=== PATIENT | male | born 1945 | race Two or more races ===

== ENCOUNTER → 2017-05-10 | Outpatient (CLI) | payer MEDICARE, MEDICAID | END | disposition home health service (06) | LOC: WOU 09:50 | PROVIDERS: ATTEND Podiatrist Foot & Ankle Surgery | DX: T87.81 Dehiscence of amputation stump (principal); E11.51 Type 2 diabetes mellitus with diabetic peripheral angiopathy without gangrene; L97.515 Non-pressure chronic ulcer of other part of right foot with muscle involvement without evidence of necrosis; T86.821 Skin graft (allograft) (autograft) failure; E11.42 Type 2 diabetes mellitus with diabetic polyneuropathy; Z87.891 Personal history of nicotine dependence; Z90.5 Acquired absence of kidney; Z79.4 Long term (current) use of insulin; Z79.899 Other long term (current) drug therapy; Z86.73 Personal history of transient ischemic attack (TIA), and cerebral infarction without residual deficits; Z85.51 Personal history of malignant neoplasm of bladder | CPT/HCPCS: 11043; 87070-TC; A4606; A6402; A6407 ==

== ENCOUNTER 2017-05-17 09:49 | Outpatient (CLI) | payer MEDICARE, MEDICAID | END 2017-05-17 23:59 | disposition home or self-care (01) | LOC: WOU 09:49 | PROVIDERS: ATTEND Specialist | DX: Z01.818 Encounter for other preprocedural examination (principal); T87.89 Other complications of amputation stump; T86.821 Skin graft (allograft) (autograft) failure; E11.52 Type 2 diabetes mellitus with diabetic peripheral angiopathy with gangrene; E11.42 Type 2 diabetes mellitus with diabetic polyneuropathy; Z85.528 Personal history of other malignant neoplasm of kidney; Z90.5 Acquired absence of kidney; Z89.421 Acquired absence of other right toe(s); Z90.79 Acquired absence of other genital organ(s); Z86.73 Personal history of transient ischemic attack (TIA), and cerebral infarction without residual deficits; Z85.46 Personal history of malignant neoplasm of prostate; Z85.51 Personal history of malignant neoplasm of bladder; Z87.891 Personal history of nicotine dependence; I10 Essential (primary) hypertension; Z79.4 Long term (current) use of insulin; Z79.899 Other long term (current) drug therapy; I74.3 Embolism and thrombosis of arteries of the lower extremities | CPT/HCPCS: A6402; G0463 ==

== ENCOUNTER → 2017-05-19 | Outpatient (CLI) | payer MEDICARE, MEDICAID | END | disposition home health service (06) | LOC: WOU 09:45 | PROVIDERS: ATTEND Podiatrist Foot & Ankle Surgery | DX: T87.89 Other complications of amputation stump (principal); E11.51 Type 2 diabetes mellitus with diabetic peripheral angiopathy without gangrene; Z90.5 Acquired absence of kidney; Z99.2 Dependence on renal dialysis; Z90.79 Acquired absence of other genital organ(s); Z85.46 Personal history of malignant neoplasm of prostate; Z85.528 Personal history of other malignant neoplasm of kidney; L97.515 Non-pressure chronic ulcer of other part of right foot with muscle involvement without evidence of necrosis; R05 Cough | CPT/HCPCS: 11043; 71046; A6402 ==

== ENCOUNTER 2017-05-26 11:00 | Outpatient (CLI) | payer MEDICARE, MEDICAID | END 2017-05-29 23:59 | disposition home health service (06) | LOC: WOU 11:00 | PROVIDERS: ATTEND Podiatrist Foot & Ankle Surgery | DX: E11.621 Type 2 diabetes mellitus with foot ulcer (principal); L97.515 Non-pressure chronic ulcer of other part of right foot with muscle involvement without evidence of necrosis; T86.821 Skin graft (allograft) (autograft) failure; E11.51 Type 2 diabetes mellitus with diabetic peripheral angiopathy without gangrene; Z89.421 Acquired absence of other right toe(s); Z79.4 Long term (current) use of insulin | CPT/HCPCS: 11043; A6402 ==

== ENCOUNTER 2017-06-02 11:47 | Outpatient (CLI) | payer MEDICARE, MEDICAID | END 2017-06-02 23:59 | disposition home health service (06) | LOC: WOU 11:47 | PROVIDERS: ATTEND Podiatrist Foot & Ankle Surgery | DX: T87.53 Necrosis of amputation stump, right lower extremity (principal); E11.42 Type 2 diabetes mellitus with diabetic polyneuropathy; Z89.431 Acquired absence of right foot; Z85.46 Personal history of malignant neoplasm of prostate; Z85.528 Personal history of other malignant neoplasm of kidney; Z90.5 Acquired absence of kidney; Z99.2 Dependence on renal dialysis; E11.51 Type 2 diabetes mellitus with diabetic peripheral angiopathy without gangrene; Z79.4 Long term (current) use of insulin; Z79.899 Other long term (current) drug therapy | CPT/HCPCS: 11043; A6402 ==

== ENCOUNTER 2017-06-09 11:30 | Outpatient (CLI) | payer MEDICARE, MEDICAID | END 2017-06-09 23:59 | disposition home health service (06) | LOC: WOU 11:30 | PROVIDERS: ATTEND Podiatrist Foot & Ankle Surgery | DX: T86.821 Skin graft (allograft) (autograft) failure (principal); Z90.5 Acquired absence of kidney; Z85.46 Personal history of malignant neoplasm of prostate; Z85.528 Personal history of other malignant neoplasm of kidney; Z99.2 Dependence on renal dialysis; T87.53 Necrosis of amputation stump, right lower extremity; R60.0 Localized edema; E11.621 Type 2 diabetes mellitus with foot ulcer; Z79.4 Long term (current) use of insulin; L97.513 Non-pressure chronic ulcer of other part of right foot with necrosis of muscle | CPT/HCPCS: 11043; A6402 ==

== ENCOUNTER 2017-07-14 11:00 | Outpatient (CLI) | payer MEDICARE, MEDICAID | END 2017-07-14 23:59 | disposition home health service (06) | LOC: WOU 11:00 | PROVIDERS: ATTEND Podiatrist Foot & Ankle Surgery | DX: T87.89 Other complications of amputation stump (principal); E11.621 Type 2 diabetes mellitus with foot ulcer; L97.412 Non-pressure chronic ulcer of right heel and midfoot with fat layer exposed; R23.4 Changes in skin texture; T81.89XA Other complications of procedures, not elsewhere classified, initial encounter; Z99.2 Dependence on renal dialysis; Z90.5 Acquired absence of kidney; Z85.46 Personal history of malignant neoplasm of prostate; Z79.4 Long term (current) use of insulin; Z79.899 Other long term (current) drug therapy; E11.52 Type 2 diabetes mellitus with diabetic peripheral angiopathy with gangrene; E11.69 Type 2 diabetes mellitus with other specified complication; M86.8X7 Other osteomyelitis, ankle and foot; L03.115 Cellulitis of right lower limb; Z89.421 Acquired absence of other right toe(s) | CPT/HCPCS: 11042; 87070-TC; 87075-TC; 87186-TC; A6402 ==

== ENCOUNTER 2017-08-04 10:10 | Outpatient (CLI) | payer MEDICARE, MEDICAID, BC ==
[2017-10-31] MEDS ORDERED: CLON1TAB5 PO (17:27)
== END 2017-08-04 23:59 | disposition home health service (06) ==
LOC: WOU 10:10
PROVIDERS: ATTEND Podiatrist Foot & Ankle Surgery
DX: T87.89 Other complications of amputation stump (principal); L97.512 Non-pressure chronic ulcer of other part of right foot with fat layer exposed; I73.9 Peripheral vascular disease, unspecified; E11.621 Type 2 diabetes mellitus with foot ulcer; T81.89XD Other complications of procedures, not elsewhere classified, subsequent encounter; L97.412 Non-pressure chronic ulcer of right heel and midfoot with fat layer exposed; L03.115 Cellulitis of right lower limb; Z99.2 Dependence on renal dialysis; Z85.46 Personal history of malignant neoplasm of prostate; Z79.4 Long term (current) use of insulin; Z90.5 Acquired absence of kidney; Z89.421 Acquired absence of other right toe(s); Z79.899 Other long term (current) drug therapy
CPT/HCPCS: 11042; 87070-TC; 87186-TC; A6402

== ENCOUNTER 2017-09-13 10:34 | Outpatient (CLI) | payer MEDICARE, BC, MEDICAID ==
[2017-10-31] MEDS ORDERED: CLON1TAB5 PO (17:27)
== END 2017-09-13 23:59 | disposition home health service (06) ==
LOC: WOU 10:34
PROVIDERS: ATTEND Podiatrist Foot & Ankle Surgery
DX: E11.52 Type 2 diabetes mellitus with diabetic peripheral angiopathy with gangrene (principal); I96 Gangrene, not elsewhere classified; T87.9 Unspecified complications of amputation stump; Z85.46 Personal history of malignant neoplasm of prostate; Z85.528 Personal history of other malignant neoplasm of kidney; Z99.2 Dependence on renal dialysis; Z89.431 Acquired absence of right foot; R23.4 Changes in skin texture; Z79.4 Long term (current) use of insulin
CPT/HCPCS: 11042; 11044; A6402

== ENCOUNTER 2017-10-31 15:24 | Inpatient (IN) | payer MEDICARE, MEDICAID ==
[~2017-10-31] VITALS: Ht 175.3 cm; Wt 95.3 kg
[2017-10-31] MEDS ORDERED: PIPERACILLIN /TAZOBACTAM 3.375 G in IV D5W 50 ML IV ONE (16:00)
[2017-10-31 16:02] LABS: BASOPHILS % (AUTO) 0.4 % (0.0-2.0); EOSINOPHILS % (AUTO) 0.3 % (0.0-6.0); HEMATOCRIT 36 % (39-51); HEMOGLOBIN 12.2 g/dL (13.5-17.5); LYMPHOCYTES # (AUTO) 0.9 /CMM (0.8-4.8); LYMPHOCYTES % (AUTO) 11.5 % (20.0-44.0); MEAN CORPUSCULAR HEMOGLOBIN 31 PG (26.0-33.0); MEAN CORPUSCULAR HGB CONC 34 g/dl (31.0-36.0); MEAN CORPUSCULAR VOLUME 93 fL (80-96); MONOCYTES # (AUTO) 0.8 /CMM (0.1-1.30); MONOCYTES % (AUTO) 9.7 % (2.0-12.0); NEUTROPHILS # (AUTO) 6.2 /CMM (1.8-8.9); NEUTROPHILS % (AUTO) 78.1 % (43.0-81.0); PLATELET COUNT (AUTO) 122 /CMM (150-450); RDW COEFFICIENT OF VARIATION 15.8 (11.5-15.0); RED BLOOD CELL COUNT(AUTO) 3.92 MIL/uL (4.5-6.0); WHITE BLOOD COUNT (AUTO) 7.9 K/uL (4.3-11.0)
[2017-10-31 16:09] LABS: CALCIUM, SERUM 8.5 mg/dL (8.5-10.1); CARBON DIOXIDE 32 mmol/L (21-32); CHLORIDE 94 mmol/L (98-107); CREATININE 5.5 mg/dL (0.6-1.3); GLUCOSE 173 mg/dL (74-106); POTASSIUM 3.8 mmol/L (3.5-5.1); SODIUM SERUM 134 mmol/L (136-145); UREA NITROGEN, BLOOD 24 mg/dL (7-18)
[2017-10-31 16:16] LABS: ALANINE AMINOTRANSFERASE 18 U/L (12-78); ALBUMIN 2.9 g/dL (3.4-5.0); ALKALINE PHOSPHATASE 93 U/L (46-116); ASPARTATE AMINOTRANSFERASE 23 U/L (15-37); BILIRUBIN,DIRECT 0.1 mg/dL (0.0-0.2); BILIRUBIN,TOTAL 0.4 mg/dL (0.2-1.0); TOTAL PROTEIN, SERUM 7.6 g/dL (6.4-8.2)
[2017-10-31 16:54] LABS: BAND % (MANUAL) 1 % (0.0-5.0); LYMPHOCYTES % (MANUAL) 17 % (16-48); MONOCYTES % (MANUAL) 5 % (0-11.0); NEUTROPHILS % (MANUAL) 77 (42-76)
[2017-10-31] MEDS ORDERED: CLOP75TA15 PO (17:27)
[2017-10-31] MEDS ORDERED: INSU100I14 SQ (17:27)
[2017-10-31] MEDS ORDERED: CALC667T2 PO (17:27)
[2017-10-31] MEDS ORDERED: CLON1TAB4 PO (17:27)
[2017-10-31] MEDS ORDERED: CARV25TA2 PO (17:27)
[2017-10-31] MEDS ORDERED: PREG150C PO (17:27)
[2017-10-31] MEDS ORDERED: HYDR-552 PO (17:27)
[2017-10-31] MEDS ORDERED: SEVE800T8 PO (17:27)
[2017-10-31] MEDS ORDERED: CLON0.1T PO (17:27)
[2017-10-31] MEDS ORDERED: HYDR-4076 PO (17:27)
[2017-10-31] MEDS ORDERED: INSU100V7 SQ (17:27)
[2017-10-31] MEDS ORDERED: ACETAMINOPHEN 325 MG TABLET PO PRN (18:00)
[2017-10-31] MEDS ORDERED: TEMAZEPAM 15 MG CAPSULE PO PRN (18:00)
[2017-10-31] MEDS ORDERED: MAGNESIUM HYDROXIDE 30 ML UDC PO PRN (18:00)
[2017-10-31] MEDS ORDERED: MORPHINE SULFATE INJ 4 MG/ML DISP.SYRIN IV PRN (18:00)
[2017-10-31] MEDS ORDERED: ONDANSETRON HCL/PF 4 MG/2 ML VIAL IVP PRN (18:00)
[2017-10-31] MEDS ORDERED: MAG HYDROX/AL HYDROX/SIMETH 30 ML UDC PO PRN (18:00)
[2017-10-31 19:00] VITALS: BP 119/48
[2017-10-31] MEDS ORDERED: FEE PK DOSING 1 MIN EA MC ONE (19:28)
[2017-10-31 20:00] VITALS: BP 101/52
[2017-10-31] MEDS ORDERED: VANCOMYCIN 1 GM in IV D5W 250 ML IV ONE (20:00)
[2017-10-31] MEDS ORDERED: clonazePAM 1 MG TABLET PO PRN (20:00)
[2017-10-31] MEDS ORDERED: CLONIDINE HCL 0.1 MG TABLET PO PRN (20:00)
[2017-10-31] MEDS ORDERED: DEXTROSE 50%-WATER 50 ML DISP.SYRIN IV PRN (20:30)
[2017-10-31] MEDS: CARVEDILOL 12.5 MG TABLET PO SCH (21:05)
[2017-10-31] MEDS: BLOOD SUGAR DIAGNOSTIC 1 EACH STRIP IN SCH (21:25)
[2017-10-31] MEDS ORDERED: INSULIN GLARGINE, 100 UNIT/ML CARTRIDGE SQ SCH (22:00)
[2017-10-31] MEDS ORDERED: INSULIN GLARGINE, 100 UNIT/ML CARTRIDGE SQ ONE (22:15)
[2017-10-31] MEDS ORDERED: INSULIN REGULAR, HUMAN 100 UNIT/ML 3 ML VIAL ONE (22:15)
[2017-10-31] MEDS: INSULIN REGULAR, HUMAN 100 UNIT/ML 3 ML VIAL SQ PRN (22:40)
[2017-10-31] MEDS: PIPERACILLIN /TAZOBACTAM 2.25 G in IV D5W 50 ML IV SCH (23:07)
[2017-11-01] MEDS: PIPERACILLIN /TAZOBACTAM 2.25 G in IV D5W 50 ML IV SCH ×3 (04:58→21:12)
[2017-11-01] MEDS: BLOOD SUGAR DIAGNOSTIC 1 EACH STRIP IN SCH ×4 (06:19→21:13)
[2017-11-01] MEDS: INSULIN REGULAR, HUMAN 100 UNIT/ML 3 ML VIAL SQ PRN ×4 (06:22→21:24)
[2017-11-01 07:05] LABS: BASOPHILS % (AUTO) 0.1 % (0.0-2.0); EOSINOPHILS % (AUTO) 1.2 % (0.0-6.0); HEMATOCRIT 33 % (39-51); HEMOGLOBIN 11.4 g/dL (13.5-17.5); LYMPHOCYTES # (AUTO) 1.1 /CMM (0.8-4.8); LYMPHOCYTES % (AUTO) 17.2 % (20.0-44.0); MEAN CORPUSCULAR HEMOGLOBIN 32 PG (26.0-33.0); MEAN CORPUSCULAR HGB CONC 34 g/dl (31.0-36.0); MEAN CORPUSCULAR VOLUME 95 fL (80-96); MONOCYTES # (AUTO) 0.9 /CMM (0.1-1.30); MONOCYTES % (AUTO) 13.9 % (2.0-12.0); NEUTROPHILS # (AUTO) 4.4 /CMM (1.8-8.9); NEUTROPHILS % (AUTO) 67.6 % (43.0-81.0); PLATELET COUNT (AUTO) 121 /CMM (150-450); RDW COEFFICIENT OF VARIATION 16.8 (11.5-15.0); RED BLOOD CELL COUNT(AUTO) 3.51 MIL/uL (4.5-6.0); WHITE BLOOD COUNT (AUTO) 6.4 K/uL (4.3-11.0)
[2017-11-01 07:19] LABS: CHOLESTEROL 168 mg/dL (<200); HDL CHOLESTEROL 30 mg/dL (40-60); LDL 61 mg/dL (0-99); TRIGLYCERIDES 570 mg/dL (30-150)
[2017-11-01 07:25] LABS: CALCIUM, SERUM 8.1 mg/dL (8.5-10.1); CARBON DIOXIDE 32 mmol/L (21-32); CHLORIDE 96 mmol/L (98-107); CREATININE 7.4 mg/dL (0.6-1.3); GLUCOSE 276 mg/dL (74-106); MAGNESIUM 2.3 mg/dL (1.8-2.4); POTASSIUM 4.2 mmol/L (3.5-5.1); SODIUM SERUM 136 mmol/L (136-145); UREA NITROGEN, BLOOD 36 mg/dL (7-18); VANCOMYCIN,TROUGH 23 ug/ml (12-20)
[2017-11-01] MEDS: PREGABALIN 100 MG CAPSULE PO SCH ×3 (08:30→17:10)
[2017-11-01] MEDS: SEVELAMER CARBONATE 800 MG TABLET PO SCH ×3 (08:30→17:10)
[2017-11-01] MEDS: CLOPIDOGREL BISULFATE 75 MG TABLET PO SCH (08:30)
[2017-11-01] MEDS: CARVEDILOL 12.5 MG TABLET PO SCH ×2 (08:30→21:13)
[2017-11-01] MEDS: CALCIUM ACETATE 667 MG TABLET PO SCH ×3 (08:30→17:10)
[2017-11-01] MEDS: hydrALAZINE HCL 25 MG TABLET PO SCH ×3 (08:31→17:10)
[2017-11-01 08:32] VITALS: BP 138/60
[2017-11-01] MEDS: INSULIN GLARGINE, 100 UNIT/ML CARTRIDGE SQ SCH ×2 (11:43→21:26)
[2017-11-01] MEDS: CADEXOMER IODINE UD 5 GM TUBE TP SCH ×2 (11:46→17:11)
[2017-11-01] MEDS: DAKINS QUARTER STRENGTH (0.125%) 480 ML BOTTLE TOP SCH (11:47)
[2017-11-01 16:35] VITALS: BP 130/57
[2017-11-01] MEDS ORDERED: LORAZEPAM INJ 2 MG/ML VIAL IV PRN ×2 (17:00)
[2017-11-01] MEDS: LACTOBACILLUS RHAMNOSUS GG 1 EACH CAP.SPRINK PO SCH (17:10)
[2017-11-01 20:00] VITALS: BP_SYST 155; BP_SYST 158; BP_DIAS 66
[2017-11-01] MEDS ORDERED: ASPIRIN 81 MG TAB.CHEW PO ONE (22:30)
[2017-11-02] MEDS: PIPERACILLIN /TAZOBACTAM 2.25 G in IV D5W 50 ML IV SCH ×3 (05:43→21:07)
[2017-11-02 07:12] LABS: BASOPHILS % (AUTO) 0.1 % (0.0-2.0); HEMATOCRIT 34 % (39-51); HEMOGLOBIN 11.4 g/dL (13.5-17.5); LYMPHOCYTES # (AUTO) 1.5 /CMM (0.8-4.8); LYMPHOCYTES % (AUTO) 21.1 % (20.0-44.0); MEAN CORPUSCULAR HEMOGLOBIN 32 PG (26.0-33.0); MEAN CORPUSCULAR HGB CONC 34 g/dl (31.0-36.0); MEAN CORPUSCULAR VOLUME 96 fL (80-96); MONOCYTES # (AUTO) 0.9 /CMM (0.1-1.30); MONOCYTES % (AUTO) 11.9 % (2.0-12.0); NEUTROPHILS # (AUTO) 4.6 /CMM (1.8-8.9); NEUTROPHILS % (AUTO) 64.9 % (43.0-81.0); PLATELET COUNT (AUTO) 125 /CMM (150-450); RDW COEFFICIENT OF VARIATION 16.4 (11.5-15.0); RED BLOOD CELL COUNT(AUTO) 3.56 MIL/uL (4.5-6.0); WHITE BLOOD COUNT (AUTO) 7.1 K/uL (4.3-11.0)
[2017-11-02 07:33] LABS: CALCIUM, SERUM 8.5 mg/dL (8.5-10.1); CARBON DIOXIDE 31 mmol/L (21-32); CHLORIDE 96 mmol/L (98-107); GLUCOSE 115 mg/dL (74-106); MAGNESIUM 2.6 mg/dL (1.8-2.4); PHOSPHORUS 6.1 mg/dL (2.5-4.9); POTASSIUM 4.5 mmol/L (3.5-5.1); SODIUM SERUM 137 mmol/L (136-145); UREA NITROGEN, BLOOD 50 mg/dL (7-18)
[2017-11-02 07:39] LABS: CREATININE 9.8 mg/dL (0.6-1.3)
[2017-11-02 08:00] VITALS: BP 136/55
[2017-11-02] MEDS: CARVEDILOL 12.5 MG TABLET PO SCH ×2 (08:24→20:38)
[2017-11-02] MEDS: ASPIRIN 81 MG TAB.CHEW PO SCH (08:24)
[2017-11-02] MEDS: LACTOBACILLUS RHAMNOSUS GG 1 EACH CAP.SPRINK PO SCH ×2 (08:24→17:51)
[2017-11-02] MEDS: SEVELAMER CARBONATE 800 MG TABLET PO SCH ×3 (08:24→17:51)
[2017-11-02] MEDS: CLOPIDOGREL BISULFATE 75 MG TABLET PO SCH (08:24)
[2017-11-02] MEDS: PREGABALIN 100 MG CAPSULE PO SCH ×4 (08:25→17:51)
[2017-11-02] MEDS: BLOOD SUGAR DIAGNOSTIC 1 EACH STRIP IN SCH ×4 (08:25→21:05)
[2017-11-02] MEDS: hydrALAZINE HCL 25 MG TABLET PO SCH ×3 (08:25→17:00)
[2017-11-02] MEDS: CALCIUM ACETATE 667 MG TABLET PO SCH ×3 (08:26→17:51)
[2017-11-02] MEDS: DAKINS QUARTER STRENGTH (0.125%) 480 ML BOTTLE TOP SCH (08:29)
[2017-11-02] MEDS: CADEXOMER IODINE UD 5 GM TUBE TP SCH ×2 (08:30→17:56)
[2017-11-02] MEDS: INSULIN GLARGINE, 100 UNIT/ML CARTRIDGE SQ SCH ×2 (08:32→21:05)
[2017-11-02] MEDS: INSULIN REGULAR, HUMAN 100 UNIT/ML 3 ML VIAL SQ PRN ×3 (12:20→21:06)
[2017-11-02 16:00] VITALS: BP 138/56
[2017-11-02] MEDS: VANCOMYCIN 500 MG in IV D5W 100 ML IV PRN (19:38)
[2017-11-02 20:00] VITALS: BP 162/68
[2017-11-03] MEDS: PIPERACILLIN /TAZOBACTAM 2.25 G in IV D5W 50 ML IV SCH ×3 (04:30→21:31)
[2017-11-03 06:31] LABS: BASOPHILS % (AUTO) 0.1 % (0.0-2.0); EOSINOPHILS % (AUTO) 1.9 % (0.0-6.0); HEMATOCRIT 32 % (39-51); HEMOGLOBIN 10.8 g/dL (13.5-17.5); LYMPHOCYTES # (AUTO) 1.6 /CMM (0.8-4.8); MEAN CORPUSCULAR HEMOGLOBIN 32 PG (26.0-33.0); MEAN CORPUSCULAR HGB CONC 33 g/dl (31.0-36.0); MEAN CORPUSCULAR VOLUME 95 fL (80-96); MONOCYTES # (AUTO) 0.9 /CMM (0.1-1.30); MONOCYTES % (AUTO) 11.2 % (2.0-12.0); NEUTROPHILS # (AUTO) 5.3 /CMM (1.8-8.9); NEUTROPHILS % (AUTO) 66.8 % (43.0-81.0); PLATELET COUNT (AUTO) 146 /CMM (150-450); RDW COEFFICIENT OF VARIATION 16.6 (11.5-15.0); RED BLOOD CELL COUNT(AUTO) 3.39 MIL/uL (4.5-6.0)
[2017-11-03] MEDS: BLOOD SUGAR DIAGNOSTIC 1 EACH STRIP IN SCH ×4 (06:48→21:44)
[2017-11-03 06:56] LABS: CALCIUM, SERUM 8.7 mg/dL (8.5-10.1); CARBON DIOXIDE 31 mmol/L (21-32); CHLORIDE 102 mmol/L (98-107); GLUCOSE 113 mg/dL (74-106); POTASSIUM 4.8 mmol/L (3.5-5.1); SODIUM SERUM 139 mmol/L (136-145); UREA NITROGEN, BLOOD 37 mg/dL (7-18)
[2017-11-03 06:59] LABS: CREATININE 7.8 mg/dL (0.6-1.3)
[2017-11-03 08:00] VITALS: BP 135/51
[2017-11-03] MEDS: LACTOBACILLUS RHAMNOSUS GG 1 EACH CAP.SPRINK PO SCH ×2 (08:32→18:10)
[2017-11-03] MEDS: hydrALAZINE HCL 25 MG TABLET PO SCH ×3 (08:33→18:10)
[2017-11-03] MEDS: PREGABALIN 100 MG CAPSULE PO SCH ×3 (08:33→18:10)
[2017-11-03] MEDS: CALCIUM ACETATE 667 MG TABLET PO SCH ×3 (08:33→18:10)
[2017-11-03] MEDS: SEVELAMER CARBONATE 800 MG TABLET PO SCH ×3 (08:34→18:10)
[2017-11-03] MEDS: ASPIRIN 81 MG TAB.CHEW PO SCH (08:34)
[2017-11-03] MEDS: CARVEDILOL 12.5 MG TABLET PO SCH ×2 (08:35→21:41)
[2017-11-03] MEDS: CLOPIDOGREL BISULFATE 75 MG TABLET PO SCH (08:35)
[2017-11-03] MEDS: DAKINS QUARTER STRENGTH (0.125%) 480 ML BOTTLE TOP SCH (08:43)
[2017-11-03] MEDS: CADEXOMER IODINE UD 5 GM TUBE TP SCH ×2 (08:43→18:18)
[2017-11-03] MEDS ORDERED: LIDOCAINE 1% INJ 50 ML MDV IJ ONE (09:00)
[2017-11-03] MEDS: INSULIN GLARGINE, 100 UNIT/ML CARTRIDGE SQ SCH ×2 (09:02→21:47)
[2017-11-03] MEDS: HYDROCODONE/APAP 10/325MG 1 EA TABLET PO PRN ×2 (12:28→18:20)
[2017-11-03] MEDS: INSULIN REGULAR, HUMAN 100 UNIT/ML 3 ML VIAL SQ PRN ×2 (13:41→18:17)
[2017-11-03 16:00] VITALS: BP 130/78
[2017-11-03 20:00] VITALS: BP 145/54
[2017-11-04] MEDS: HYDROCODONE/APAP 10/325MG 1 EA TABLET PO PRN ×3 (04:38→16:26)
[2017-11-04] MEDS: PIPERACILLIN /TAZOBACTAM 2.25 G in IV D5W 50 ML IV SCH ×3 (05:14→21:22)
[2017-11-04 07:03] LABS: BASOPHILS % (AUTO) 0.1 % (0.0-2.0); EOSINOPHILS % (AUTO) 2.8 % (0.0-6.0); HEMATOCRIT 31 % (39-51); HEMOGLOBIN 10.3 g/dL (13.5-17.5); LYMPHOCYTES # (AUTO) 1.6 /CMM (0.8-4.8); LYMPHOCYTES % (AUTO) 21.2 % (20.0-44.0); MEAN CORPUSCULAR HEMOGLOBIN 32 PG (26.0-33.0); MEAN CORPUSCULAR HGB CONC 33 g/dl (31.0-36.0); MEAN CORPUSCULAR VOLUME 96 fL (80-96); MONOCYTES # (AUTO) 0.6 /CMM (0.1-1.30); MONOCYTES % (AUTO) 8.5 % (2.0-12.0); NEUTROPHILS % (AUTO) 67.4 % (43.0-81.0); PLATELET COUNT (AUTO) 155 /CMM (150-450); RDW COEFFICIENT OF VARIATION 16.9 (11.5-15.0); RED BLOOD CELL COUNT(AUTO) 3.23 MIL/uL (4.5-6.0); WHITE BLOOD COUNT (AUTO) 7.4 K/uL (4.3-11.0)
[2017-11-04 07:20] LABS: CALCIUM, SERUM 8.4 mg/dL (8.5-10.1); CARBON DIOXIDE 27 mmol/L (21-32); CHLORIDE 100 mmol/L (98-107); GLUCOSE 163 mg/dL (74-106); POTASSIUM 5.5 mmol/L (3.5-5.1); SODIUM SERUM 137 mmol/L (136-145); UREA NITROGEN, BLOOD 44 mg/dL (7-18)
[2017-11-04 07:22] LABS: CREATININE 9.3 mg/dL (0.6-1.3)
[2017-11-04] MEDS: BLOOD SUGAR DIAGNOSTIC 1 EACH STRIP IN SCH ×4 (07:26→21:22)
[2017-11-04 08:00] VITALS: BP 135/55
[2017-11-04] MEDS: CALCIUM ACETATE 667 MG TABLET PO SCH ×3 (09:45→17:11)
[2017-11-04] MEDS: LACTOBACILLUS RHAMNOSUS GG 1 EACH CAP.SPRINK PO SCH ×2 (09:45→16:26)
[2017-11-04] MEDS: ASPIRIN 81 MG TAB.CHEW PO SCH (09:45)
[2017-11-04] MEDS: CARVEDILOL 12.5 MG TABLET PO SCH ×2 (09:45→21:25)
[2017-11-04] MEDS: SEVELAMER CARBONATE 800 MG TABLET PO SCH ×3 (09:45→17:11)
[2017-11-04] MEDS: CLOPIDOGREL BISULFATE 75 MG TABLET PO SCH (09:45)
[2017-11-04] MEDS: PREGABALIN 100 MG CAPSULE PO SCH ×3 (09:45→16:26)
[2017-11-04] MEDS: hydrALAZINE HCL 25 MG TABLET PO SCH ×3 (09:46→16:26)
[2017-11-04] MEDS: INSULIN GLARGINE, 100 UNIT/ML CARTRIDGE SQ SCH ×2 (09:47→21:24)
[2017-11-04] MEDS: DAKINS QUARTER STRENGTH (0.125%) 480 ML BOTTLE TOP SCH (09:49)
[2017-11-04] MEDS: CADEXOMER IODINE UD 5 GM TUBE TP SCH ×2 (09:50→16:27)
[2017-11-04] MEDS: INSULIN REGULAR, HUMAN 100 UNIT/ML 3 ML VIAL SQ PRN ×3 (12:43→21:25)
[2017-11-04 16:00] VITALS: BP 122/51
[2017-11-04 20:00] VITALS: BP 134/63
[2017-11-04] MEDS: VANCOMYCIN 500 MG in IV D5W 100 ML IV PRN (23:49)
[2017-11-05] MEDS: PIPERACILLIN /TAZOBACTAM 2.25 G in IV D5W 50 ML IV SCH ×2 (05:00→12:31)
[2017-11-05] MEDS: HYDROCODONE/APAP 10/325MG 1 EA TABLET PO PRN (06:29)
[2017-11-05] MEDS: BLOOD SUGAR DIAGNOSTIC 1 EACH STRIP IN SCH ×2 (06:31→11:56)
[2017-11-05 07:21] LABS: CALCIUM, SERUM 8.9 mg/dL (8.5-10.1); CARBON DIOXIDE 30 mmol/L (21-32); CHLORIDE 99 mmol/L (98-107); GLUCOSE 109 mg/dL (74-106); POTASSIUM 4.9 mmol/L (3.5-5.1); SODIUM SERUM 139 mmol/L (136-145); UREA NITROGEN, BLOOD 39 mg/dL (7-18)
[2017-11-05 07:35] LABS: CREATININE 8.3 mg/dL (0.6-1.3)
[2017-11-05 08:00] VITALS: BP 129/53
[2017-11-05] MEDS: CLOPIDOGREL BISULFATE 75 MG TABLET PO SCH (08:46)
[2017-11-05] MEDS: PREGABALIN 100 MG CAPSULE PO SCH (08:46)
[2017-11-05 08:47] VITALS: BP 129/53
[2017-11-05] MEDS: hydrALAZINE HCL 25 MG TABLET PO SCH (08:47)
[2017-11-05] MEDS: LACTOBACILLUS RHAMNOSUS GG 1 EACH CAP.SPRINK PO SCH (08:47)
[2017-11-05] MEDS: CARVEDILOL 12.5 MG TABLET PO SCH (08:47)
[2017-11-05] MEDS: CALCIUM ACETATE 667 MG TABLET PO SCH (08:47)
[2017-11-05] MEDS: SEVELAMER CARBONATE 800 MG TABLET PO SCH (08:48)
[2017-11-05] MEDS: ASPIRIN 81 MG TAB.CHEW PO SCH (08:48)
[2017-11-05] MEDS: INSULIN GLARGINE, 100 UNIT/ML CARTRIDGE SQ SCH (09:01)
[2017-11-05] MEDS ORDERED: LEVO500T75 PO (09:25)
[2017-11-05] MEDS ORDERED: AMOX-430 PO (09:25)
[2017-11-05] MEDS: CADEXOMER IODINE UD 5 GM TUBE TP SCH (11:56)
[2017-11-05] MEDS: DAKINS QUARTER STRENGTH (0.125%) 480 ML BOTTLE TOP SCH (11:56)
[2017-11-05] MEDS: INSULIN REGULAR, HUMAN 100 UNIT/ML 3 ML VIAL SQ PRN (12:02)
[2017-11-05] MEDS ORDERED: Hydrocodone/Apap 10/325MG PO (12:33)
== END 2017-11-05 13:00 | disposition home health service (06) | DRG 623 ==
LOC: ER 15:29 → MED 18:22
PROVIDERS: ADMIT Nurse Practitioner Acute Care; ATTEND Nurse Practitioner Acute Care
PROC: 5A1D70Z Performance of Urinary Filtration, Intermittent, Less than 6 Hours Per Day (ICD-10-PCS; 2017-11-02)
PROC: 0JBQ0ZZ Excision of Right Foot Subcutaneous Tissue and Fascia, Open Approach (ICD-10-PCS; principal; 2017-11-03)
PROC: 0J9Q0ZZ Drainage of Right Foot Subcutaneous Tissue and Fascia, Open Approach (ICD-10-PCS; 2017-11-03)
PROC: 5A1D70Z Performance of Urinary Filtration, Intermittent, Less than 6 Hours Per Day (ICD-10-PCS; 2017-11-04)
DX: E11.69 Type 2 diabetes mellitus with other specified complication (principal); L03.115 Cellulitis of right lower limb; M86.9 Osteomyelitis, unspecified; I12.0 Hypertensive chronic kidney disease with stage 5 chronic kidney disease or end stage renal disease; E11.52 Type 2 diabetes mellitus with diabetic peripheral angiopathy with gangrene; L97.419 Non-pressure chronic ulcer of right heel and midfoot with unspecified severity; E11.621 Type 2 diabetes mellitus with foot ulcer; N18.6 End stage renal disease; E11.22 Type 2 diabetes mellitus with diabetic chronic kidney disease; E11.42 Type 2 diabetes mellitus with diabetic polyneuropathy; Z99.2 Dependence on renal dialysis; Z90.5 Acquired absence of kidney; Z89.431 Acquired absence of right foot; Z87.891 Personal history of nicotine dependence; Z86.73 Personal history of transient ischemic attack (TIA), and cerebral infarction without residual deficits; Z98.890 Other specified postprocedural states; Z85.51 Personal history of malignant neoplasm of bladder; Z79.4 Long term (current) use of insulin; Z79.899 Other long term (current) drug therapy; F41.9 Anxiety disorder, unspecified; F32.9 Major depressive disorder, single episode, unspecified; E78.5 Hyperlipidemia, unspecified; D64.9 Anemia, unspecified; G89.29 Other chronic pain; I25.10 Atherosclerotic heart disease of native coronary artery without angina pectoris; L89.890 Pressure ulcer of other site, unstageable; E11.65 Type 2 diabetes mellitus with hyperglycemia; M85.861 Other specified disorders of bone density and structure, right lower leg
CPT/HCPCS: 36415; 73610-TC; 73630-TC; 73718-TC; 80048-TC; 80061-TC; 80076-TC; 80202-TC; 82962-TC; 83605-TC; 83735-TC; 84100-TC; 85025-TC; 85652-TC; 86850-TC; 87040-TC; 87070-TC; 87081-TC; 88305-TC; 88311-TC; 88312-TC; 90935-TC; A4606; A6402; J1815; J2543; J3370; J3490; J7040; J7060; Z7610

== ENCOUNTER 2017-12-06 11:00 | Outpatient (CLI) | payer MEDICARE, MEDICAID ==
[~2017-12-06 11:00] MED LIST: AMOX-430 PO; CALC667T2 PO; CARV25TA2 PO; CLON0.1T PO; CLON1TAB5 PO; CLOP75TA15 PO; HYDR-4076 PO; HYDR-552 PO; Hydrocodone/Apap 10/325MG PO; INSU100I14 SQ; INSU100V7 SQ; LEVO500T75 PO; PREG150C PO; SEVE800T8 PO
== END 2017-12-06 23:59 | disposition home health service (06) ==
LOC: WOU 11:00
PROVIDERS: ATTEND Specialist
DX: E11.621 Type 2 diabetes mellitus with foot ulcer (principal); L97.512 Non-pressure chronic ulcer of other part of right foot with fat layer exposed; L97.412 Non-pressure chronic ulcer of right heel and midfoot with fat layer exposed; E11.42 Type 2 diabetes mellitus with diabetic polyneuropathy; Z79.4 Long term (current) use of insulin; Z90.5 Acquired absence of kidney; Z85.528 Personal history of other malignant neoplasm of kidney; Z87.891 Personal history of nicotine dependence; Z99.2 Dependence on renal dialysis; E11.52 Type 2 diabetes mellitus with diabetic peripheral angiopathy with gangrene; E11.36 Type 2 diabetes mellitus with diabetic cataract; I10 Essential (primary) hypertension
CPT/HCPCS: A6402; G0463; Z7610

== ENCOUNTER 2021-11-16 01:03 | Inpatient (IN) | payer MEDICARE, OTHER ==
[~2021-11-16] VITALS: Ht 167.6 cm; Wt 80.3 kg
[~2021-11-16 01:03] MED LIST changes: +CLON1TAB12 PO; -CLON1TAB5 PO; +HYDR-4384 PO; -HYDR-552 PO; +LEVO500T23 PO; -LEVO500T75 PO
[2021-11-16] MEDS ORDERED: DEXTROSE 50%-WATER 50 ML DISP.SYRIN ONE (01:14)
--- NOTE | 2021-11-16 01:15 | NUR ---
PATIENT BIBA 79 FROM HOME FOR C/O ALTERED MENTAL STATUS. PATIENT ON LEVAQUIN FOR PNA.PATIENT TESTED + FOR COVID LAST WEEK. LAST HD: MONDAY. PATIENT TAKENTO ER BED 08. PATIENT PLACED ON CARDIAC AND POX MONITORS.
[2021-11-16] MEDS ORDERED: CHOL500062 PO ×2 (01:27→20:16)
[2021-11-16] MEDS ORDERED: ZINC50TA39 PO (01:27)
[2021-11-16] MEDS ORDERED: ASCO100058 PO (01:27)
[2021-11-16] MEDS ORDERED: VIT1TABL46 PO ×2 (01:27→20:16)
[2021-11-16] MEDS ORDERED: DEXTROSE 50%-WATER 50 ML DISP.SYRIN IVP ONE (01:30)
[2021-11-16 01:35] LABS: BASOPHILS % (AUTO) 0.4 % (0.0-2.0); EOSINOPHILS % (AUTO) 0.8 % (0.0-6.0); HEMATOCRIT 30 % (39-51); LYMPHOCYTES # (AUTO) 0.9 K/uL (0.8-4.8); LYMPHOCYTES % (AUTO) 22.1 % (20.0-44.0); MEAN CORPUSCULAR HGB CONC 34 g/dl (31.0-36.0); MEAN CORPUSCULAR VOLUME 95 fL (80-96); MONOCYTES # (AUTO) 0.3 K/uL (0.1-1.30); MONOCYTES % (AUTO) 6.4 % (2.0-12.0); NEUTROPHILS # (AUTO) 2.9 K/uL (1.8-8.9); NEUTROPHILS % (AUTO) 70.3 % (43.0-81.0); PLATELET COUNT (AUTO) 99 K/uL (150-450); RED BLOOD CELL COUNT(AUTO) 3.15 MIL/uL (4.5-6.0); WHITE BLOOD COUNT (AUTO) 4.1 K/uL (4.3-11.0)
--- NOTE | 2021-11-16 01:37 | NUR ---
BLOOD COLLECTED AND SENT TO LAB
--- NOTE | 2021-11-16 01:38 | NUR ---
XRAY AT BEDSIDE
--- NOTE | 2021-11-16 01:56 | NUR ---
COVID ANTIGEN SWAB COLLECTED AND SENT TO LAB
[2021-11-16 02:03] LABS: ALANINE AMINOTRANSFERASE 13 U/L (12-78); ALBUMIN 2.2 g/dL (3.4-5.0); ALKALINE PHOSPHATASE 45 U/L (46-116); ASPARTATE AMINOTRANSFERASE 25 U/L (15-37); BILIRUBIN,DIRECT 0.1 mg/dL (0.0-0.2); BILIRUBIN,TOTAL 0.4 mg/dL (0.2-1.0); CALCIUM, SERUM 8.1 mg/dL (8.5-10.1); CARBON DIOXIDE 28 mmol/L (21-32); CHLORIDE 94 mmol/L (98-107); GLUCOSE 51 mg/dL (74-106); POTASSIUM 3.8 mmol/L (3.5-5.1); SERUM AMMONIA < 10 umol/L (11-32); SODIUM SERUM 137 mmol/L (136-145); TOTAL PROTEIN, SERUM 7.5 g/dL (6.4-8.2); UREA NITROGEN, BLOOD 47 mg/dL (7-18)
[2021-11-16 02:04] LABS: CREATININE 9.7 mg/dL (0.6-1.3)
[2021-11-16 02:05] LABS: ALCOHOL, BLOOD < 3 mg/dL (0-0)
--- NOTE | 2021-11-16 02:08 | NUR ---
MRSA SWAB COLLECTED AND SENT TO LAB. PATIENT'S BELONGINGS LIST DONE.
[2021-11-16] MEDS ORDERED: ASPIRIN 325 MG TABLET ONE (02:26)
--- NOTE | 2021-11-16 02:32 | NUR ---
PT PASSED SWALLOW EVAL; ABLE TO SWALLOW WHOLE PILLS AND THIN LIQUIDS WITHOUT COUGHING OR CHOKING.
[2021-11-16 02:49] LABS: BASOPHILS % (MANUAL) 0 % (0.0-2.0); EOSINOPHILS % (MANUAL) 0 % (0-4); LYMPHOCYTES % (MANUAL) 20 % (16-48); MONOCYTES % (MANUAL) 11 % (0-11.0); NEUTROPHILS % (MANUAL) 69 (42-76)
[2021-11-16] MEDS ORDERED: ASPIRIN EC 325 MG TABLET.DR PO ONE (03:00)
[2021-11-16] MEDS ORDERED: CEFTRIAXONE 1 G in IV D5W 50 ML IV ONE (03:30)
[2021-11-16] MEDS ORDERED: AZITHROMYCIN 500 MG in IV D5W 250 ML IV ONE (03:30)
[2021-11-16] MEDS ORDERED: CEFTRIAXONE 1GM BAG (ER ONLY) 50 ML IV ONE (03:31)
[2021-11-16] MEDS ORDERED: AZITHROMYCIN 500 MG VIAL ONE (03:32)
[2021-11-16] MEDS ORDERED: ONDANSETRON HCL/PF 4 MG/2 ML VIAL IVP PRN (04:30)
[2021-11-16] MEDS ORDERED: ACETAMINOPHEN 325 MG TABLET PO PRN (04:30)
[2021-11-16] MEDS ORDERED: DEXTROSE 50%-WATER 50 ML DISP.SYRIN IV PRN (04:30)
[2021-11-16] MEDS ORDERED: INSULIN REGULAR, HUMAN 100 UNIT/ML 3 ML VIAL SQ PRN (04:30)
[2021-11-16] MEDS ORDERED: HEPARIN INFUSION/D5W 500 ML IV PRN (04:30)
[2021-11-16 05:56] LABS: C-REACTIVE PROTEIN 3.5 mg/dL (0.0-0.9)
--- NOTE | 2021-11-16 07:03 | NUR ---
PATIENTS WEIGHT 188LBS
--- NOTE | 2021-11-16 07:15 | NUR ---
RECEVED PT FROM PULE RN PT IN GERNY RESPIRATION SPONT AND EASY WATING FOR TELMETRY BED NO CHEST PAIN
--- NOTE | 2021-11-16 07:22 | NUR ---
REPORT GIVEN TO ALE GLORIA FOR RIAZ
--- NOTE | 2021-11-16 07:42 | NUR ---
ROOM [facility]
--- NOTE | 2021-11-16 07:47 | NUR ---
report given to Patrick AGUILERA for RIAZ
--- NOTE | 2021-11-16 08:05 | NUR ---
TO ROOM 102 MELI GALINDO VS
[2021-11-16] MEDS: BLOOD SUGAR DIAGNOSTIC 1 EACH STRIP IN SCH ×4 (08:15→22:55)
--- NOTE | 2021-11-16 08:45 | NUR ---
STARTED HEPARIN DRIP AT 1200 UNIT/ HR 2 RN WITNESS
[2021-11-16] MEDS ORDERED: CEFEPIME 1 GM VIAL IM SCH (10:00)
[2021-11-16] MEDS ORDERED: BIMA2.5D5 EACHEYE (10:03)
[2021-11-16] MEDS ORDERED: LEVO750T46 PO (10:03)
[2021-11-16] MEDS ORDERED: SEVE800T8 PO (10:03)
[2021-11-16] MEDS ORDERED: ROSU40TA23 PO (10:03)
[2021-11-16] MEDS ORDERED: METF-440 PO (10:03)
[2021-11-16] MEDS ORDERED: AMYL1CAP56 PO (10:03)
[2021-11-16] MEDS ORDERED: DEXL60CA3 PO (10:03)
[2021-11-16] MEDS ORDERED: LINA5TAB PO (10:03)
[2021-11-16] MEDS ORDERED: CALC667C6 PO (10:03)
[2021-11-16] MEDS ORDERED: REPA2TAB10 PO ×2 (10:03→20:16)
[2021-11-16] MEDS ORDERED: EMPA25TA PO (10:03)
[2021-11-16] MEDS ORDERED: LORA10TA7 PO (10:03)
[2021-11-16] MEDS ORDERED: METO-295 PO (10:03)
[2021-11-16] MEDS ORDERED: PROM118S5 PO (10:03)
[2021-11-16] MEDS: CEFEPIME 1 GM in IV D5W 50 ML IV SCH ×2 (10:35→21:41)
[2021-11-16] MEDS: DEXAMETHASONE SOD PHOSPHATE 10 MG/ML VIAL IV SCH (10:36)
--- NOTE | 2021-11-16 11:46 | NUR ---
RN NOTE PT RECEIVED FROM ER VIA JONATHAN, PT IN ROOM AIR. NOT IN RESPI DISTRESS. V/S STABLE. WITH IV ACCESS ON L WRIST G18. WITH HEPARIN DRIP RUNNING @ 1200U. NO SS OF BLEEDING NOTED. WILL CONTINUE TO MONITOR.
--- NOTE | 2021-11-16 11:48 | NUR ---
RN NOTE HD CONSENT FORM SIGNED BY PT, PT IS ALERT AND ORIENTED X 3.
[2021-11-16 16:00] VITALS: BP 141/54
--- NOTE | 2021-11-16 16:06 | NUR ---
RN NOTE PT 1500 APTT RESULTS 82.8. WILL HOLD HEPARIN DRIP FOR 30 MINS AND DECREASE RATE BY 150 U/HR PER PROTOCOL. PT NO SS OF BLEEDING NOTED. V/S STABLE.
--- NOTE | 2021-11-16 16:15 | NUR ---
RN NOTE PT APTT R/C 2100 11/16/21
--- NOTE | 2021-11-16 18:36 | NUR ---
RN NOTE 5160 BS - 315. PT REFUSED INSULIN COVERAGE. PT VERBALIZED HE STOPPED TAKING INSULIN B/C HE HAS ALLERGIC REACTIONS (ITCHING ALL OVER). PMD MADE AWARE. WITH TEL ORDER TO CONTINUE HOME MEDS. RECONCILED MEDS FAXED TO PHARMACY.
[2021-11-16 20:00] VITALS: BP 142/68
[2021-11-16] MEDS ORDERED: PREG150C PO (20:16)
[2021-11-16] MEDS ORDERED: CLON1TAB12 PO (20:16)
[2021-11-16] MEDS ORDERED: HYDR-4077 PO (20:16)
--- NOTE | 2021-11-16 20:30 | NUR ---
RN NOTES: NOTED PT WAS BLEEDING FROM AV SHUNT. APPLIED PRESSURE, BLEEDING STOPPED. APPLIED NEW DRESSING. NO BLEEDING NOTED. SIMRAN NARANJO NOTIFIED. AWARE.
--- NOTE | 2021-11-16 20:35 | NUR ---
RN NOTES: TURNED OFF HEPARIN PER DR. ROBERSON ORDER. WILL CONTINUE TO MONITOR
[2021-11-16] MEDS ORDERED: VANCOMYCIN 1 GM in IV D5W 250 ML IV ONE (21:00)
[2021-11-16] MEDS: CARVEDILOL 12.5 MG TABLET PO SCH (21:43)
[2021-11-16] MEDS: PREGABALIN 25 MG CAPSULE PO SCH (21:44)
--- NOTE | 2021-11-16 22:32 | NUR ---
RN NOTES: DR. ROBEROSN CAME TO VISIT THE PT. ORDER TO TURN ON THE HEPARIN AT 2245. WILL CONTINUE TO MONITOR
--- NOTE | 2021-11-16 22:56 | NUR ---
RN NOTES: HEPARIN DRIP STARTED PER DR. ORDER. PT'S BLOOD SUGAR 399. UNABLE TO GIVE INSULIN, PT STATED HE IS ALLERGIC TO INSULIN. WILL CONTINUE TO MONITOR
--- NOTE | 2021-11-16 23:00 | NUR ---
RN NOTES: NOTIFIED DR. DA KHALIL REGARDING PT'S BLOOD SUGAR 399. UNABLE TO TAKE INSULIN DUE TO ALLERGY. WILL CONTINUE TO MONITOR
--- NOTE | 2021-11-16 23:39 | NUR ---
RN NOTES: AT 2330, PTT LEVEL 44.6, INCREASE THE HEPARIN DRIP BY 150 UNITS/HR PER PROTOCOL. NEW RATE 1200 UNITS/HR. WILL CONTINUE TO MONITOR
[2021-11-17] VITALS: BP 158/67
[2021-11-17] MEDS ORDERED: MAG HYDROX/AL HYDROX/SIMETH 30 ML UDC PO PRN
--- NOTE | 2021-11-17 00:12 | NUR ---
RN NOTES: PT C/O HEARTBURN. NOTIFIED DR. ROBERSON. SIMRAN. ORDER- MAALOX SUSP 30ML PRN. ORDER NOTED AND CARRIED OUT.
[2021-11-17] MEDS: AZITHROMYCIN 500 MG in IV D5W 250 ML IV SCH (03:58)
[2021-11-17 04:00] VITALS: BP 144/58
[2021-11-17 06:32] LABS: BASOPHILS % (AUTO) 0.3 % (0.0-2.0); EOSINOPHILS % (AUTO) 0.1 % (0.0-6.0); MONOCYTES # (AUTO) 0.2 K/uL (0.1-1.30)
--- NOTE | 2021-11-17 06:40 | NUR ---
RN CLOSING NOTES: PT IN BED AWAKE, ALERT/ORIENTED X3-4 AND VERBALLY RESPONSIVE. ON ROOM AIR. O2 SAT 92%. IV ACCESS ON LT WRIST#18G AND LT LITTLE FINGER#22G INTACT AND PATENT. NO S/S OF INFILTRATIONS. HEPARIN DRIP RUNNING 1200 UNITS/HR. NO C/O PAIN OR DISCOMFORT. NO ACUTE DISTRESS. ALL DUE MEDS GIVEN ORDERED. ALL SAFETY MEASURES IN PLACE. BED IN LOWEST POSITION AND LOCKED. SIDE RAILS X3, PLACE CALL LIGHT WITH IN REACH. WILL ENDORSE TO MORNING SHIFT NURSE.
--- NOTE | 2021-11-17 07:45 | NUR ---
RN NOTE PT RECEIVED RESTING IN BE. CONT IN ROOM AIR. NOT IN RESPI DISTRESS. WITH IV ACCESS ON L WRIST G18. WITH HEPARIN DRIP RUNNING @ 1200U. NO SS OF BLEEDING NOTED. WILL CONTINUE TO MONITOR.
--- NOTE | 2021-11-17 07:48 | NUR ---
RN NOTE PT APTT 103.6. HEPARIN DRIP HELD FOR 60MINS AND WILL DECREASE DOSE BY 250 U/HR. PT NO SS OF BLEEDING. WILL CONT TO MONITOR.
[2021-11-17 08:00] VITALS: BP 138/55
[2021-11-17] MEDS: CEFEPIME 1 GM in IV D5W 50 ML IV SCH ×2 (08:57→21:15)
[2021-11-17] MEDS: REPAGLINIDE 2 MG TABLET PO SCH ×3 (08:57→17:00)
[2021-11-17] MEDS: EMPAGLIFLOZIN 25 MG TABLET PO SCH (08:57)
[2021-11-17] MEDS: DEXAMETHASONE SOD PHOSPHATE 10 MG/ML VIAL IV SCH (08:57)
[2021-11-17] MEDS: CHOLECALCIFEROL 1,000 UNIT TABLET (VIT D3) PO SCH (08:58)
[2021-11-17] MEDS: VIT B CMPLX 3/FA/VIT C/BIOTIN 1 TAB TABLET PO SCH (08:58)
[2021-11-17] MEDS: hydrALAZINE HCL 50 MG TABLET PO SCH ×2 (08:59→17:01)
[2021-11-17] MEDS: BLOOD SUGAR DIAGNOSTIC 1 EACH STRIP IN SCH ×4 (08:59→22:46)
[2021-11-17] MEDS: CARVEDILOL 12.5 MG TABLET PO SCH ×2 (08:59→21:15)
[2021-11-17] MEDS ORDERED: REPAGLINIDE 2 MG TABLET PO SCH (09:00)
[2021-11-17] MEDS ORDERED: CLOPIDOGREL BISULFATE 75 MG TABLET PO SCH (09:00)
[2021-11-17 09:17] LABS: ALANINE AMINOTRANSFERASE 10 U/L (12-78); ALKALINE PHOSPHATASE 40 U/L (46-116); ASPARTATE AMINOTRANSFERASE 24 U/L (15-37); BILIRUBIN,TOTAL 0.4 mg/dL (0.2-1.0); CALCIUM, SERUM 7.6 mg/dL (8.5-10.1); CARBON DIOXIDE 24 mmol/L (21-32); CHLORIDE 86 mmol/L (98-107); MAGNESIUM 2.3 mg/dL (1.8-2.4); POTASSIUM 4.7 mmol/L (3.5-5.1); SODIUM SERUM 130 mmol/L (136-145); TOTAL PROTEIN, SERUM 7.4 g/dL (6.4-8.2); UREA NITROGEN, BLOOD 59 mg/dL (7-18)
[2021-11-17 09:23] LABS: CHOLESTEROL 274 mg/dL (<200); HDL CHOLESTEROL 37 mg/dL (40-60); LDL 184 mg/dL (0-99); TRIGLYCERIDES 183 mg/dL (30-150)
[2021-11-17 09:28] LABS: CREATININE 9.1 mg/dL (0.6-1.3); GLUCOSE 419 mg/dL (74-106); PHOSPHORUS 9.7 mg/dL (2.5-4.9)
[2021-11-17 10:12] LABS: HEMATOCRIT 27 % (39-51); LYMPHOCYTES # (AUTO) 0.5 K/uL (0.8-4.8); LYMPHOCYTES % (AUTO) 19.4 % (20.0-44.0); MEAN CORPUSCULAR HGB CONC 33 g/dl (31.0-36.0); MEAN CORPUSCULAR VOLUME 96 fL (80-96); NEUTROPHILS % (AUTO) 72.2 % (43.0-81.0); PLATELET COUNT (AUTO) 98 K/uL (150-450); RED BLOOD CELL COUNT(AUTO) 2.84 MIL/uL (4.5-6.0); WHITE BLOOD COUNT (AUTO) 2.7 K/uL (4.3-11.0)
[2021-11-17 11:47] LABS: BAND % (MANUAL) 2 % (0.0-5.0); LYMPHOCYTES % (MANUAL) 11 % (16-48); NEUTROPHILS % (MANUAL) 82 (42-76)
[2021-11-17 11:48] LABS: MONOCYTES % (MANUAL) 5 % (0-11.0)
[2021-11-17] MEDS: PANTOPRAZOLE 40 MG TABLET.DR PO SCH (11:53)
[2021-11-17 12:00] VITALS: BP 138/55
[2021-11-17 16:00] VITALS: BP 154/69
--- NOTE | 2021-11-17 18:58 | NUR ---
RN NOTE PT RESTING IN BED. CONT IN ROOM AIR. NOT IN RESPI DISTRESS. WITH IV ACCESS ON L WRIST G18. NO SS OF BLEEDING NOTED. WILL CONTINUE TO MONITOR. DUE MEDICATIONS GIVEN. AM/PM CARE DONE. SAFETY MEASURES FOLLOWED. WILL CONT TO MONITOR.
--- NOTE | 2021-11-17 19:46 | NUR ---
RN NOTE CRITICAL LAB VALUE REPORTED BY LAB, GLUCOSE 670. DOCTOR FRONT OFFICE AGENT CONTACTED, ORDERED 15 UNITS REGULAR INSULIN. WILL CARRY OUT ORDER AND CONTINUE TO MONITOR PATIENT.
[2021-11-17] MEDS: *INSULIN REGULAR(HUMULIN R)HUM 100 UNIT/ML VIAL SQ PRN (19:57)
[2021-11-17 20:00] VITALS: BP 175/65
[2021-11-17] MEDS ORDERED: DEXTROSE 50%-WATER 50 ML DISP.SYRIN IV PRN (20:00)
[2021-11-17] MEDS ORDERED: diphenhydrAMINE HCL 25 MG CAPSULE PO ONE (20:00)
[2021-11-17] MEDS: PREGABALIN 25 MG CAPSULE PO SCH (21:14)
[2021-11-17] MEDS: clonazePAM 1 MG TABLET PO SCH (21:15)
--- NOTE | 2021-11-17 21:58 | NUR ---
RN NOTES SCHEDULED 2200 GLUCOSE CHECK READS CRITICAL VALUE GREATER THAN 600. DA KHALIL [employer] FABRICATOR NOTIFIED. INSULIN COVERAGE GIVEN FOR PREVIOUS CRITICAL GLUCOSE VALUE AT 1950. ORDER IS TO RECHECK GLUCOSE AT 2300 TO GIVE TIME FOR LAST INSULIN COVERAGE TO WORK. WILL CARRY OUT ORDER.
--- NOTE | 2021-11-17 22:21 | NUR ---
RN NOTES RECEIVED CARE OF PATIENT FROM AM NURSE. PATIENT IS HYPERGLYCEMIC. AM NURSE ENDORSED THAT PATIENT HAS BEEN HYPERGLYCEMIC ALL DAY WITH LAST GLUCOSE READING AT 544. PATIENT'S DAUGHTER HAS REQUESTED FOR INSULIN ADMINISTRATION TO BE HELD DUE TO PATIENT BEING "ALLERGIC" TO INSULIN. DAUGHTER AND PATIENT WILL BE EDUCATED ON IMPORTANCE OF GLUCOSE CONTROL. Addendum: 11/17/21 at 3897 by PALAK ACUNA RN INCORRECT TIME. NOTE INTENDED FOR 11/17/21 AT 1920
[2021-11-17] MEDS: INSULIN REGULAR, HUMAN 100 UNIT/ML 3 ML VIAL SQ PRN (23:05)
--- NOTE | 2021-11-17 23:13 | NUR ---
RN NOTE ADMINISTERED 15 UNITS REGULAR INSULIN AT 2305 PER DA KHALIL BUSHEL WORKER ORDERS FOR GLUCOSE READING GREATER THAN 600 TAKEN AT 2300. WILL CONTINUE TO MONITOR PATIENT.
[2021-11-18] VITALS: BP 139/62
[2021-11-18] MEDS: AZITHROMYCIN 500 MG in IV D5W 250 ML IV SCH (03:00)
[2021-11-18 04:00] VITALS: BP 98/52
--- NOTE | 2021-11-18 07:05 | NUR ---
RN CLOSING NOTES ENDORSED CARE OF PATIENT TO AM NURSE. PATIENT SLEEPING, WAKES UP TO NAME, PATIENT IN NO DISTRESS OR SHOWING SIGNS OF COMPLICATIONS AT THIS TIME, ALL DUE MEDS GIVEN, ALL PATIENT NEEDS ANTICIPATED AND MET. SAFETY MEASURES IMPLEMENTED PER HOSPITAL PROTOCOLS. ENDORSE CARE OF PATIENT TO AM NURSE FOR RIAZ.
[2021-11-18 07:14] LABS: CALCIUM, SERUM 7.7 mg/dL (8.5-10.1); CARBON DIOXIDE 25 mmol/L (21-32); CHLORIDE 86 mmol/L (98-107); POTASSIUM 5.3 mmol/L (3.5-5.1); SODIUM SERUM 125 mmol/L (136-145); UREA NITROGEN, BLOOD 77 mg/dL (7-18)
[2021-11-18 07:22] LABS: GLUCOSE 506 mg/dL (74-106)
[2021-11-18 07:23] LABS: CREATININE 10.1 mg/dL (0.6-1.3)
[2021-11-18] MEDS: PANTOPRAZOLE 40 MG TABLET.DR PO SCH (07:26)
[2021-11-18] MEDS: BLOOD SUGAR DIAGNOSTIC 1 EACH STRIP IN SCH ×4 (07:27→21:39)
[2021-11-18] MEDS: INSULIN REGULAR, HUMAN 100 UNIT/ML 3 ML VIAL SQ PRN ×3 (07:34→17:58)
--- NOTE | 2021-11-18 07:39 | NUR ---
RN OPENING NOTES RECIEVED PT ON BED, A/O X 3-4, PT ON RA SATING AT 95%. TELE LAVON. READS SR W/BBB. IV ACCESS NOTED AT JORGE LUIS AV SHUNT, L WRIST 18G, L LITTLE FINGER 22G. LAST GLUCOSE CHECK 0730 384. TRENDING DOWN. ALL SAFETY FALL PRECAUTIONS MEASURES IN PLACE, WILL CONT. TO MONITOR THROUGHOUT SHIFT.
[2021-11-18 08:00] VITALS: BP 129/58
[2021-11-18] MEDS: hydrALAZINE HCL 50 MG TABLET PO SCH ×2 (08:07→16:43)
[2021-11-18] MEDS: DEXAMETHASONE SOD PHOSPHATE 10 MG/ML VIAL IV SCH (08:08)
[2021-11-18] MEDS: VIT B CMPLX 3/FA/VIT C/BIOTIN 1 TAB TABLET PO SCH (08:08)
[2021-11-18] MEDS: CARVEDILOL 12.5 MG TABLET PO SCH ×2 (08:08→21:13)
[2021-11-18] MEDS: CHOLECALCIFEROL 1,000 UNIT TABLET (VIT D3) PO SCH (08:08)
[2021-11-18] MEDS: CEFEPIME 1 GM in IV D5W 50 ML IV SCH ×2 (08:08→21:12)
[2021-11-18] MEDS: REPAGLINIDE 2 MG TABLET PO SCH (08:09)
[2021-11-18] MEDS: EMPAGLIFLOZIN 25 MG TABLET PO SCH (08:09)
[2021-11-18] MEDS: VANCOMYCIN POST DIALYSIS 500MG IV PRN ×4 (10:59→21:12)
[2021-11-18 12:00] VITALS: BP 127/59
[2021-11-18 16:00] VITALS: BP 108/44
[2021-11-18] MEDS ORDERED: ALBUMIN 25% 25 GM in PREMIX 1 EA IV STA (16:11)
--- NOTE | 2021-11-18 16:43 | NUR ---
holding hydralazine due to HD.
--- NOTE | 2021-11-18 18:51 | NUR ---
RN CLOSING NOTES PT IS RESTING IN BED, A/O X 2-3. PT IS ON RA SATING AT 95%. TELE MONITOR READS SR WITH BBB. IV ACCESS NOTED AT L WRIST 18G. L LITTLE FINGER 22G, JORGE LUIS AV SHUNT. PT RECEIVING HD AT THIS TIME. LAST GLUCOSE CHECK SHOWED BS OF 224. 8 UNITS GIVEN. ALL SAFETY MEASURES IN PLACE, FALL PRECAUTIONS IN PLACE, WILL ENDORSE TO RESTORATIVE CARE TECHNICIAN NURSE FOR RIAZ.
--- NOTE | 2021-11-18 19:30 | NUR ---
RN NOTES RECEIVED CARE OF PATIENT, PATIENT IS CURRENTLY RECEIVING HEMODIALYSIS TREATMENT, PATIENT TOLERATING TREATMENT WELL. NO SIGNS OF ACUTE COMPLICATIONS NOTED, VITAL SIGNS WNL. PATIENT ABLE TO MAKE NEEDS KNOWN, EXPRESSES NO PAIN AT THIS TIME. WILL CONTINUE TO MONITOR PATIENT AND CARRY OUT PLAN OF CARE.
[2021-11-18 20:00] VITALS: BP 133/44
[2021-11-18] MEDS: PREGABALIN 25 MG CAPSULE PO SCH (21:13)
[2021-11-18] MEDS: clonazePAM 1 MG TABLET PO SCH (21:13)
[2021-11-18] MEDS: *INSULIN REGULAR(HUMULIN R)HUM 100 UNIT/ML VIAL SQ PRN (21:43)
[2021-11-18] MEDS: INSULIN GLARGINE, 100 UNIT/ML CARTRIDGE SQ SCH (21:44)
[2021-11-19] VITALS: BP 114/45
[2021-11-19 04:00] VITALS: BP 137/51
[2021-11-19] MEDS: AZITHROMYCIN 500 MG in IV D5W 250 ML IV SCH (04:13)
--- NOTE | 2021-11-19 06:43 | NUR ---
RN CLOSING NOTES WILL ENDORSE CARE OF PATIENT TO AM NURSE. PATIENT SLEEPING, WAKES UP TO NAME, PATIENT IN NO DISTRESS OR SHOWING SIGNS OF COMPLICATIONS AT THIS TIME, ALL DUE MEDS GIVEN, ALL PATIENT NEEDS ANTICIPATED AND MET. SAFETY MEASURES IMPLEMENTED PER HOSPITAL PROTOCOLS. WILL ENDORSE CARE OF PATIENT TO AM NURSE FOR RIAZ.
--- NOTE | 2021-11-19 07:30 | NUR ---
RN NOTES RECEIVED PATIENT AWAKE, A/0X4, ON ROOM AIR, TOLERATING WELL, O2 SAT IS AT 98%. NO SIGNS OF DISTRESS, PATIENT ABLE TO MAKE NEEDS KNOWN, EXPRESSES NO PAIN AT THIS TIME. SAFETY MEASURES IN PLACE. WILL CONTINUE TO MONITOR PATIENT AND CARRY OUT PLAN OF CARE.
[2021-11-19 08:00] VITALS: BP 134/45
[2021-11-19 08:08] LABS: BASOPHILS % (AUTO) 0.3 % (0.0-2.0); EOSINOPHILS % (AUTO) 0.1 % (0.0-6.0); HEMATOCRIT 26 % (39-51); HEMOGLOBIN 8.7 g/dL (13.5-17.5); LYMPHOCYTES # (AUTO) 0.4 K/uL (0.8-4.8); LYMPHOCYTES % (AUTO) 11.5 % (20.0-44.0); MEAN CORPUSCULAR HGB CONC 33 g/dl (31.0-36.0); MEAN CORPUSCULAR VOLUME 96 fL (80-96); MONOCYTES # (AUTO) 0.3 K/uL (0.1-1.30); MONOCYTES % (AUTO) 8.6 % (2.0-12.0); NEUTROPHILS # (AUTO) 2.6 K/uL (1.8-8.9); NEUTROPHILS % (AUTO) 79.5 % (43.0-81.0); PLATELET COUNT (AUTO) 106 K/uL (150-450); RED BLOOD CELL COUNT(AUTO) 2.74 MIL/uL (4.5-6.0); WHITE BLOOD COUNT (AUTO) 3.3 K/uL (4.3-11.0)
[2021-11-19] MEDS: BLOOD SUGAR DIAGNOSTIC 1 EACH STRIP IN SCH ×4 (08:24→21:25)
[2021-11-19] MEDS: PANTOPRAZOLE 40 MG TABLET.DR PO SCH (08:24)
[2021-11-19] MEDS: DEXAMETHASONE SOD PHOSPHATE 10 MG/ML VIAL IV SCH (08:54)
[2021-11-19] MEDS: VIT B CMPLX 3/FA/VIT C/BIOTIN 1 TAB TABLET PO SCH (08:54)
[2021-11-19] MEDS: CARVEDILOL 12.5 MG TABLET PO SCH ×2 (08:55→21:00)
[2021-11-19] MEDS: hydrALAZINE HCL 50 MG TABLET PO SCH ×2 (08:55→17:58)
[2021-11-19] MEDS: CHOLECALCIFEROL 1,000 UNIT TABLET (VIT D3) PO SCH (08:55)
[2021-11-19 08:58] LABS: CALCIUM, SERUM 8.1 mg/dL (8.5-10.1); CARBON DIOXIDE 25 mmol/L (21-32); CHLORIDE 91 mmol/L (98-107); CREATININE 7.4 mg/dL (0.6-1.3); GLUCOSE 336 mg/dL (74-106); POTASSIUM 4.3 mmol/L (3.5-5.1); SODIUM SERUM 128 mmol/L (136-145); UREA NITROGEN, BLOOD 58 mg/dL (7-18)
[2021-11-19] MEDS: INSULIN REGULAR, HUMAN 100 UNIT/ML 3 ML VIAL SQ PRN ×4 (09:13→21:27)
[2021-11-19 12:00] VITALS: BP 120/45
[2021-11-19 12:10] LABS: CALCIUM, SERUM 7.9 mg/dL (8.5-10.1); CARBON DIOXIDE 25 mmol/L (21-32); CHLORIDE 91 mmol/L (98-107); GLUCOSE 290 mg/dL (74-106); POTASSIUM 4.3 mmol/L (3.5-5.1); SODIUM SERUM 128 mmol/L (136-145); UREA NITROGEN, BLOOD 61 mg/dL (7-18)
[2021-11-19 12:45] LABS: CREATININE 7.9 mg/dL (0.6-1.3)
[2021-11-19 16:00] VITALS: BP 136/43
--- NOTE | 2021-11-19 19:08 | NUR ---
RN CLOSING NOTES PT IS RESTING IN BED, A/O X 2-3. PT IS ON RA SATING AT 95%. TELE MONITOR READS SR WITH BBB. IV ACCESS NOTED AT L WRIST 18G. L LITTLE FINGER 22G, JORGE LUIS AV SHUNT. ALL SAFETY MEASURES IN PLACE, FALL PRECAUTIONS IN PLACE, WILL ENDORSE TO COMMUNICATIONS SENIOR ASSOCIATE NURSE FOR RIAZ.
--- NOTE | 2021-11-19 19:30 | NUR ---
RN OPENING NOTE RECEIVED PT IN BED, AWAKE, A/O X 3, ABLE TO MAKE NEEDS KNOWN, CURRENTLY ON RA, TOLERATING WELL, SATING AT 95%. TELE MONITOR READS SR WITH BBB. IV ACCESS NOTED AT JORGE LUIS AV SHUNT, L WRIST 18G, AND L LITTLE FINGER 22G. ALL SAFETY PRECAUTIONS IN PLACE: BED LOCKED IN LOW POSITION. BED ALARM ON. CALL LIGHT WITHIN REACH. WILL CONTINUE TO MONITOR THROUGHOUT SHIFT.
[2021-11-19 20:00] VITALS: BP 124/55
[2021-11-19] MEDS: clonazePAM 1 MG TABLET PO SCH (20:21)
[2021-11-19] MEDS: CEFEPIME 1 GM in IV D5W 50 ML IV SCH (20:21)
--- NOTE | 2021-11-19 21:05 | NUR ---
RN NOTE PT HAS LOW PULSE RATE - 56. BP IS 124/55. WITHHELD COREG MED FOR 2100. WILL CONTINUE TO MONITOR PT CLOSELY.
[2021-11-19] MEDS: PREGABALIN 25 MG CAPSULE PO SCH (21:13)
[2021-11-19] MEDS: INSULIN GLARGINE, 100 UNIT/ML CARTRIDGE SQ SCH (21:31)
--- NOTE | 2021-11-19 22:30 | NUR ---
RN NOTE DUE MEDS GIVEN. PT SLEEPING SOUNDLY. WILL CONTINUE TO MONITOR.
[2021-11-20] VITALS: BP 144/58
[2021-11-20] MEDS: AZITHROMYCIN 500 MG in IV D5W 250 ML IV SCH (03:12)
[2021-11-20 04:00] VITALS: BP 134/58
--- NOTE | 2021-11-20 05:00 | NUR ---
RN NOTE HEMODIALYSIS STARTED AT 0445.
--- NOTE | 2021-11-20 06:25 | NUR ---
TD RN CLOSING NOTE NO SIGNIFICANT CHANGES THROUGHOUT THE SHIFT. PT REMAINED STABLE. SLEPT THROUGH THE NIGHT. ALL DUE MEDS GIVEN. NEEDS ATTENDED TO. PT HAD 3 BMs. PT STARTED ON HD AT 0445. WILL FINISH IN 3 HRS. ALL SAFETY PRECAUTIONS IMPLEMENTED - BED LOCKED IN LOW POSITION. BED ALARM ON. CALL LIGHT WITHIN REACH. WILL ENDORSE TO AM SHIFT NURSE FOR RIAZ.
--- NOTE | 2021-11-20 07:35 | NUR ---
RN NOTE PT RECEIVED RESTING IN BED. CONT IN ROOM AIR. NOT IN RESPI DISTRESS. WITH IV ACCESS ON L WRIST G18. COVID PREC. SAFETY MEASURES MAINTAINED. WILL CONTINUE TO MONITOR.
--- NOTE | 2021-11-20 07:36 | NUR ---
RN NOTE PT ONGOING HD.
[2021-11-20 08:00] VITALS: BP 133/66
--- NOTE | 2021-11-20 08:20 | NUR ---
RN NOTE PT S/P HD WITH 2L FLUIDS REMOVED. PT NOT IN DISTRESS. V/S STABLE WILL CONT TO MONITOR.
[2021-11-20] MEDS: CARVEDILOL 12.5 MG TABLET PO SCH ×2 (09:00→21:45)
[2021-11-20] MEDS: DEXAMETHASONE SOD PHOSPHATE 10 MG/ML VIAL IV SCH (09:28)
[2021-11-20] MEDS: CHOLECALCIFEROL 1,000 UNIT TABLET (VIT D3) PO SCH (09:29)
[2021-11-20] MEDS: VIT B CMPLX 3/FA/VIT C/BIOTIN 1 TAB TABLET PO SCH (09:29)
[2021-11-20] MEDS: hydrALAZINE HCL 50 MG TABLET PO SCH ×2 (09:30→16:45)
[2021-11-20] MEDS: BLOOD SUGAR DIAGNOSTIC 1 EACH STRIP IN SCH ×4 (09:30→22:05)
[2021-11-20] MEDS: PANTOPRAZOLE 40 MG TABLET.DR PO SCH (09:30)
[2021-11-20 09:57] LABS: CALCIUM, SERUM 8.7 mg/dL (8.5-10.1); CARBON DIOXIDE 18 mmol/L (21-32); CHLORIDE 97 mmol/L (98-107); CREATININE 5.3 mg/dL (0.6-1.3); GLUCOSE 166 mg/dL (74-106); POTASSIUM 3.8 mmol/L (3.5-5.1); SODIUM SERUM 130 mmol/L (136-145); UREA NITROGEN, BLOOD 43 mg/dL (7-18)
[2021-11-20 12:00] VITALS: BP 133/66
[2021-11-20] MEDS: VANCOMYCIN POST DIALYSIS 500MG IV PRN ×2 (13:42)
[2021-11-20 16:00] VITALS: BP 132/54
[2021-11-20] MEDS: INSULIN REGULAR, HUMAN 100 UNIT/ML 3 ML VIAL SQ PRN (17:12)
--- NOTE | 2021-11-20 18:45 | NUR ---
RN NOTE PT RECEIVED RESTING IN BED. CONT IN ROOM AIR. NOT IN RESPI DISTRESS. WITH IV ACCESS ON L WRIST G18. COVID PREC. SAFETY MEASURES MAINTAINED. ALL DUE MEDS GIVEN, AM/PM CARE DONE. WILL CONTINUE TO MONITOR. V/S WNL.
--- NOTE | 2021-11-20 19:00 | NUR ---
RN NOTE RECEIVED PT IN BED, ON SEMI YOUSSEF'S, AO X 3-4, BOLIVIAN SPEAKING BUT UNDERSTANDS SOME GREEK, IN NO S/SX OF ACUTE DISTRESS AT THIS TIME, BREATHING EVEN AND UNLABORED, SATURATION AT 95% ON ROOM AIR, HR IS 61. JORGE LUIS AV FISTULA IN PLACE, BRUIT AND THRILL NOTED. IV LINE AT L WRIST 18G AND L SMALL FINGER 22G BOTH PATENT AND FLUSHING WELL, NO S/S OF INFECTION OR INFILTRATION, SALINE LOCKED. SAFETY MEASURES IMPLEMENTED. PATIENT BED ALARM IS ON. HEAD OF BED ELEVATED. BED IS LOCKED, IN LOWEST POSITION AND SIDE RAILS UP. CALL LIGHT WITHIN REACH OF THE PATIENT. WILL CONTINUE TO MONITOR AND REASSESS FOR ANY CHANGES.
[2021-11-20 20:00] VITALS: BP 142/52
[2021-11-20] MEDS: CEFEPIME 1 GM in IV D5W 50 ML IV SCH (21:44)
[2021-11-20] MEDS: clonazePAM 1 MG TABLET PO SCH (21:44)
[2021-11-20] MEDS: PREGABALIN 25 MG CAPSULE PO SCH (21:48)
[2021-11-20] MEDS: INSULIN GLARGINE, 100 UNIT/ML CARTRIDGE SQ SCH (22:12)
[2021-11-20] MEDS: *INSULIN REGULAR(HUMULIN R)HUM 100 UNIT/ML VIAL SQ PRN (22:13)
--- NOTE | 2021-11-20 22:15 | NUR ---
RN NOTE Manual barcode done on regular insulin, AC dose showing instead of HS dose when insulin vial scanned. Segun AGUILERA as witness
[2021-11-21 00:51] VITALS: BP 142/52
[2021-11-21 04:00] VITALS: BP 143/52
[2021-11-21] MEDS: BLOOD SUGAR DIAGNOSTIC 1 EACH STRIP IN SCH (07:30)
[2021-11-21] MEDS: PANTOPRAZOLE 40 MG TABLET.DR PO SCH (07:33)
--- NOTE | 2021-11-21 07:37 | NUR ---
RECEIVED PATIENT IN BED, AWAKE, ALERT X 3, BEL[place] SPEAKING BUT IS ABLE TO MAKE NEEDS KNOWN, BREATHING REGULAR AND UNLABORED. NO S/S OF SOB. ON RA WITH OXYGEN SATURATION OF 96%. 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 HAS HD ACCESS ON JORGE LUIS AVF. SALINE LOCK ON LEFT WRIST # 18 GAUGE, PATENT AND FLUSHING WELL, NO S/S OF INFILTRATION NOTED. WILL KEEP PATIENT CLEAN AND DRY AT ALL TIMES. SAFETY MEASURES IN PLACE. BED LOCKED AND IN LOWEST POSITION, SR UP X 2. CALL LIGHT WITHIN REACH. WILL CONTINUE TO MONITOR PATIENT THROUGHOUT SHIFT.
[2021-11-21 08:00] VITALS: BP 144/60
[2021-11-21 09:13] LABS: CALCIUM, SERUM 8.2 mg/dL (8.5-10.1); CARBON DIOXIDE 22 mmol/L (21-32); CHLORIDE 97 mmol/L (98-107); CREATININE 7.1 mg/dL (0.6-1.3); GLUCOSE 93 mg/dL (74-106); POTASSIUM 4.5 mmol/L (3.5-5.1); SODIUM SERUM 131 mmol/L (136-145); UREA NITROGEN, BLOOD 62 mg/dL (7-18)
[2021-11-21] MEDS: DEXAMETHASONE SOD PHOSPHATE 10 MG/ML VIAL IV SCH (09:26)
[2021-11-21] MEDS: VIT B CMPLX 3/FA/VIT C/BIOTIN 1 TAB TABLET PO SCH (09:27)
[2021-11-21] MEDS: hydrALAZINE HCL 50 MG TABLET PO SCH (09:27)
[2021-11-21 09:28] VITALS: BP 144/60
[2021-11-21] MEDS: CARVEDILOL 12.5 MG TABLET PO SCH (09:28)
[2021-11-21] MEDS: CHOLECALCIFEROL 1,000 UNIT TABLET (VIT D3) PO SCH (09:28)
[2021-11-21] MEDS ORDERED: AMOX-430 PO (10:48)
[2021-11-21] MEDS ORDERED: DEXA4TAB PO (10:48)
[2021-11-21] MEDS ORDERED: Insulin Glargine,Hum SQ (10:48)
[2021-11-21] MEDS ORDERED: CARV12.52 PO (10:48)
--- NOTE | 2021-11-21 11:00 | NUR ---
RECEIVED DISCHARGE ORDER FROM DR. GUTIERREZ. DISCHARGE ORDERS STARTED FOR THE PATIENT
--- NOTE | 2021-11-21 11:22 | NUR ---
PATIENT'S SOFY INFORMED OF CURRENT DISCHARGED MEDS ORDERED BY MD AND STATED THAT SHE HAS ALL THE PATIENT'S MEDICATION AT HOME EXCEPT AMOXICILLIN AND VITAMIN B COMPLEX
--- NOTE | 2021-11-21 11:22 | NUR ---
CALLED [facility] @ BUT NO ANSWER FROM THE PHARMACY, TRIED SEVERAL TIMES. WILL CALL AGAIN LATER. CALLED , SPOKE WITH SOFY AND INFORMED OF THE ORDER
--- NOTE | 2021-11-21 14:00 | NUR ---
PATIENT LEFT THE FACILITY AND ACCOMPANIED VIA W/C PT LEFT IN NO ACUTE DISTRESS. DISCHARGE PACKET AND INSTRUCTIONS PROVIDED TO THE PATIENT AND DAUGHTER REAGAN.
== END 2021-11-21 15:35 | disposition home health service (06) | DRG 177 ==
LOC: ER 01:04 → TRANSITION 04:35 → TELE1 07:55 → TELE-TD 08:03 → MEDSG1 11-20 07:02
PROVIDERS: ADMIT Internal Medicine; ATTEND Internal Medicine
PROC: 5A1D70Z Performance of Urinary Filtration, Intermittent, Less than 6 Hours Per Day (ICD-10-PCS; principal; 2021-11-16)
DX: U07.1 COVID-19 (principal); D61.811 Other drug-induced pancytopenia; G92.8 Other toxic encephalopathy; N18.6 End stage renal disease; J12.82 Pneumonia due to coronavirus disease 2019; I21.A1 Myocardial infarction type 2; J18.9 Pneumonia, unspecified organism; I13.11 Hypertensive heart and chronic kidney disease without heart failure, with stage 5 chronic kidney disease, or end stage renal disease; D69.6 Thrombocytopenia, unspecified; Z99.2 Dependence on renal dialysis; E11.22 Type 2 diabetes mellitus with diabetic chronic kidney disease; Z95.1 Presence of aortocoronary bypass graft; Z85.51 Personal history of malignant neoplasm of bladder; I25.10 Atherosclerotic heart disease of native coronary artery without angina pectoris; Z98.62 Peripheral vascular angioplasty status; Z89.412 Acquired absence of left great toe; Z89.421 Acquired absence of other right toe(s); Z79.899 Other long term (current) drug therapy; Z79.4 Long term (current) use of insulin; Z79.02 Long term (current) use of antithrombotics/antiplatelets; Z90.5 Acquired absence of kidney; Z90.79 Acquired absence of other genital organ(s); M89.8X9 Other specified disorders of bone, unspecified site; E88.09 Other disorders of plasma-protein metabolism, not elsewhere classified; Y95 Nosocomial condition; E11.65 Type 2 diabetes mellitus with hyperglycemia; E11.51 Type 2 diabetes mellitus with diabetic peripheral angiopathy without gangrene; Z86.73 Personal history of transient ischemic attack (TIA), and cerebral infarction without residual deficits; Z89.511 Acquired absence of right leg below knee
CPT/HCPCS: 36415; 70450-TC; 71045-TC; 80048-TC; 80053-TC; 80061-TC; 80076-TC; 80202-TC; 82140-TC; 82728-TC; 82947-TC; 82962-TC; 83615-TC; 83735-TC; 83880; 84100-TC; 84484-TC; 85025-TC; 85378-TC; 85730-TC; 86140-TC; 86706; 87081-TC; 87340; 90935-TC; 93307-TC; A4216; A6403; C9803; G0378; G0480; J0456; J0692; J0696; J1100; J1644; J1815; J2405; J3370; J7030; J7050; J7060; P9047; Q0163